=== PATIENT | male | born 1995 | race African-American/Black ===

== ENCOUNTER 2021-07-16 07:29 | Day surgery (SDC) | payer OTHER ==
[2021-07-14 14:28] VITALS: BMI 32.5
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
[2021-07-16] MEDS ORDERED: LACTATED RINGERS 1,000 ML IV SCH (07:53)
[2021-07-16] MEDS ORDERED: MIDAZOLAM 2 MG/2 ML VIAL IV PRN (07:53)
[2021-07-16] MEDS ORDERED: ONDANSETRON 4 MG/2 ML VIAL IVP ONE (07:53)
[2021-07-16] MEDS ORDERED: DEXAMETHASONE SOD PHOSPHATE 4 MG/ML 1 ML VIAL IV ONE (07:53)
[2021-07-16] MEDS ORDERED: fentaNYL (PF) 50 MCG/ML 2 ML AMP ONE (08:57)
[2021-07-16] MEDS ORDERED: SODIUM CHLORIDE 0.9% 100 ML BAG ONE (08:57)
[2021-07-16] MEDS ORDERED: PROPOFOL 10 MG/ML 20 ML VIAL IV ONE (08:57)
[2021-07-16] MEDS ORDERED: LIDOCAINE 1% INJ 10MG/ML (20 ML MDV) ONE (08:57)
[2021-07-16] MEDS ORDERED: MIDAZOLAM 2 MG/2 ML VIAL ONE (08:57)
[2021-07-16] MEDS ORDERED: DEXAMETHASONE SOD PHOSPHATE 10 MG/ML 1 ML VIAL ONE (08:57)
[2021-07-16] MEDS ORDERED: ceFAZolin 1,000 MG VIAL ONE (08:57)
[2021-07-16] MEDS ORDERED: HYDROmorphone (PF) 1 MG/ML ONE (08:57)
[2021-07-16] MEDS ORDERED: SUCCINYLCHOLINE CHLORIDE 100 MG/5 ML SYR IV ONE (08:57)
[2021-07-16] MEDS ORDERED: NALOXONE 0.4 MG/ML 1 ML VIAL ONE (08:57)
[2021-07-16] MEDS ORDERED: KETAMINE 10 MG/ML 20 ML VIAL ONE (08:57)
[2021-07-16] MEDS ORDERED: BUPIVACAINE (PF) 0.25% 30 ML VIAL SQ ONE ×2 (09:21)
--- NOTE | 2021-07-16 10:21 | P.OP ---
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 He has failed topical therapy with Aldara. Examination reveals 75-100 small penile condyloma measuring up to 5 mm in size. He now comes for CO2 laser ablation. Operative Findings: Multiple small penile condyloma. Description of Procedure: Patient was taken to the operating room and placed in supine position. The external genitalia was prepped and draped sterilely. The penis, scrotum, and suprapubic regions were examined. Several condyloma were noted in the suprapubic region, one in the right groin crease, and several in the scrotum. The majority were located on the phallus, numbering greater than 75 and measuring up to 5 mm in diameter. Most are 1-2 mm in diameter. The largest was excised, and the base cauterized using the Bovie electrocautery. This was saved and sent to pathology. The remaining condyloma were ablated using the CO2 laser. This was performed with magnification, and careful inspection revealed no residual untreated condyloma. There was no blood loss. Upon completion of the procedure, bacitracin ointment was applied to all involved areas. 0.25% Sensorcaine was injected subcutaneously, circumferentially at the penile base. The patient tolerated the procedure well was taken to the recovery room stable condition.
[2021-07-16] MEDS ORDERED: LACTATED RINGERS 1,000 ML IV ONE (10:44)
[2021-07-16 10:49] VITALS: TEMP 97.5
[2021-07-16] MEDS: HYDROmorphone 0.5 MG/0.5 ML SYRINGE IVP PRN ×2 (11:06→11:22)
[2021-07-16] MEDS ORDERED: IBUPROFEN 200 MG TAB PO ONE (12:15)
[2021-07-16 12:36] VITALS: BP 151/81; PULSE 105; RESP 14
== END 2021-07-16 13:03 | disposition home or self-care (01) ==
LOC: OR 07:29
PROVIDERS: ATTEND Urology
DX: D07.4 Carcinoma in situ of penis (principal); A63.0 Anogenital (venereal) warts; J45.909 Unspecified asthma, uncomplicated; Z98.890 Other specified postprocedural states; K21.9 Gastro-esophageal reflux disease without esophagitis; F41.9 Anxiety disorder, unspecified; Z87.891 Personal history of nicotine dependence; Z79.899 Other long term (current) drug therapy
CPT/HCPCS: 54065; 88305; J2250; J1100 ×2; J2310; J2405; J0690; J2001; J3010; J1170 ×2; J0330; J2704